=== PATIENT | female | born 1980 | race Caucasian/White ===

== ENCOUNTER 2019-05-21 22:36 | Emergency (ER) | payer OTHER ==
[2019-05-21 22:43] VITALS: BP 141/94; TEMP 98.2; BMI 38.7
--- NOTE | 2019-05-21 23:05 | PDOC ---
History of Present Illness - General Chief Complaint: Diarrhea Stated Complaint: DIARRHEA SINCE MONDAY,VOMITED X 2 Time Seen by Provider: 05/21/19 22:39 - History of Present Illness Initial Comments: 05/21/19 23:14 This 38-year-old woman with a history of anxiety but no other significant past history presents with 4-day history of nausea/vomiting/diarrhea. Patient states that she vomited once at the start of the illness but has had intermittent nausea and persistent diarrhea for the last 4 days. No blood or mucus in diarrhea fluid. Patient has been feeling increasingly weak for the last few days. No fever/chills/significant abdominal pain. Patient was able to tolerate fluids yesterday but noted increasing nausea today. Patient's nephew (who lives in the same house as the patient) had similar gastroenteritis for several days last week. No known allergies Medications: Lexapro 1 pack/day smoker; no daily alcohol or other recreational drug use Past History - Past Medical History Allergies/Adverse Reactions: Allergies Allergy/AdvReac Type Severity Reaction Status Date / Time No Known Allergies Allergy Verified 05/21/19 22:37 Home Medications: Ambulatory Orders Escitalopram Oxalate [Lexapro -] 20 mg PO DAILY 05/21/19 Ondansetron [Zofran *Odt*] 4 mg SL TID PRN #10 od.tablet 05/22/19 COPD: No Other medical history: ANXIETY - Psycho Social/Smoking Cessation Hx Smoking History: Current every day smoker Have you smoked in the past 12 months: Yes Number of Cigarettes Smoked Daily: 20 Information on smoking cessation initiated: Yes Hx Alcohol Use: No Drug/Substance Use Hx: No Review of Systems - Review of Systems Able to Perform ROS?: Yes Comments:: 12 point review of systems is negative except for what is noted in the history of present illness *Physical Exam - Vital Signs Last Vital Signs Temp Pulse Resp BP Pulse Ox 98.2 F 103 H 16 141/94 97 05/21/19 22:40 05/21/19 22:40 05/21/19 22:40 05/21/19 22:40 05/21/19 22:40 - Physical Exam GENERAL: Adult female, alert and oriented x3, appearing weak but in no acute distress HEAD: Normal with no signs of trauma. EYES: PERRLA, EOMI, sclera anicteric, conjunctiva clear. ENT: Ears normal, nares patent, oropharynx clear without exudates. Dry mucous membranes. NECK: Normal range of motion, supple without lymphadenopathy, JVD, or masses. LUNGS: Breath sounds equal, clear to auscultation bilaterally. No wheezes, and no crackles. HEART:Regular rate and rhythm, normal S1 and S2 without murmur, rub or gallop. ABDOMEN:.normal bowel sounds No guarding,tenderness or rebound.No masses No distention. EXTREMITIES: Normal range of motion, no edema. No clubbing or cyanosis. No erythema, or tenderness. NEUROLOGICAL: Cranial nerves II through XII grossly intact. Normal speech. No focal neurological deficits. MUSCULOSKELETAL: Back non-tender to palpation, no CVA tenderness SKIN: Warm, Dry, normal turgor, no rashes or lesions noted. ED Treatment Course - LABORATORY CBC & Chemistry Diagram: 05/21/19 23:30 05/21/19 23:30 ED Progress Note - Progress Note Progress Note: CBC and chemistry profile sent Normal saline 1 L IV administered and Zofran 4 mg IV given. Chemistry profile notable for potassium of 2.9 Patient feels much improved after IV hydration and Zofran IV. Patient given potassium 40 mEq (K. Dur) Patient discharged with instructions to continue clear liquids and advance diet as tolerated. Zofran ODT 4 mg to be used up to 3 times a day prescription sent to pharmacy She should return if she has persistent vomiting or develops fever/abdominal pain Discharge - Discharge Information Problems reviewed: Yes Clinical Impression/Diagnosis: Gastroenteritis Condition: Stable Disposition: HOME - Additional Discharge Information Prescriptions: Ondansetron [Zofran *Odt*] 4 mg SL TID PRN #10 od.tablet PRN Reason: Nausea - Follow up/Referral - Patient Discharge Instructions Patient Printed Discharge Instructions: DI for Viral Gastroenteritis -- Adult Additional Instructions: Drink plenty of liquids Zofran ODT 4 mg up to 3 times a day as needed for nausea Consider using Pepto-Bismol, Imodium or Kaopectate for loose stools Return to ER if you have persistent vomiting or develop fever/severe abdominal pain No work until 24 hours without vomiting or diarrhea Follow-up with your doctor within the next week - Post Discharge Activity Work/Back to School Note: Back to Work
[2019-05-21] MEDS ORDERED: SODIUM CHLORIDE 1,000 ML IV STA (23:12)
[2019-05-21] MEDS ORDERED: ONDANSETRON 4 MG/2 ML VIAL IVPUSH ONE (23:12)
[2019-05-21] MEDS ORDERED: ONDANSETRON 4 MG/2 ML VIAL ONE (23:28)
[2019-05-21 23:46] LABS: BASO % 1.1 % (0-2.0); EOS % 1.1 % (0-4.5); HEMATOCRIT 48.1 % (32.4-45.2); HEMOGLOBIN 15.4 GM/dl (10.7-15.3); LYMPH % 30.6 % (8-40); MCH 25.1 pg (25.7-33.7); MCHC 31.9 g/dl (32.0-36.0); MEAN CELL VOLUME 78.6 fl (80-96); MEAN PLT VOLUME 9.7 fl (7.5-11.1); MONO % 7.7 % (3.8-10.2); NEUT % 59.5 % (42.8-82.8); PLATELET COUNT 242 K/MM3 (134-434); RBC 6.12 M/mm3 (3.60-5.2); RDW 15.9 % (11.6-15.6); WHITE BLOOD COUNT 8.3 K/mm3 (4.0-10.8)
[2019-05-21 23:56] LABS: ALBUMIN 4.3 g/dl (3.4-5.0); BILIRUBIN,TOTAL 0.4 mg/dl (0.2-1); CALCIUM 8.6 mg/dl (8.5-10); CREATININE 0.8 mg/dl (0.55-1.3); TOT PROT 8.2 g/dl (6.4-8.2)
[2019-05-21 23:58] LABS: POTASSIUM 2.9 mmol/L (3.5-5.1)
[2019-05-22] MEDS ORDERED: POTASSIUM CHLORIDE TABS 20 MEQ TABLET.ER (FP) PO ONE ×2 (00:28→00:29)
[2019-05-22 01:33] VITALS: PULSE 85
== END 2019-05-22 01:34 | disposition home or self-care (01) ==
LOC: FER 22:36
PROC: 3E033GC Introduction of Other Therapeutic Substance into Peripheral Vein, Percutaneous Approach (ICD-10-PCS; principal; 2019-05-21)
DX: K52.9 Noninfective gastroenteritis and colitis, unspecified (principal); F41.9 Anxiety disorder, unspecified; F17.210 Nicotine dependence, cigarettes, uncomplicated
CPT/HCPCS: 36415; 80053; 85025; 99281-25; J7030